=== PATIENT | female | born 1945 | race Caucasian/White ===

== ENCOUNTER 2017-06-19 08:51 | Outpatient (CLI) | payer MEDICARE ==
--- NOTE | 2017-06-19 13:49 | CT ---
CT OF THE CHEST WITHOUT CONTRAST: HISTORY: Followup pulmonary nodules originally diagnosed in 1984. Fatigue for 3-4 months. TECHNIQUE: Multiple contiguous axial images were obtained in a CT of the chest without contrast. Coronal refor mats were performed. FINDINGS: There are peripheral areas of nodularity seen in the right lung. There is a peripheral area of nodu larity measuring approximately 5 mm in size on image 35 of 62 in the right middle lobe. There is a peripheral nodularity measuring 4-5 mm in size image 42 of 62 in the right lower lobe. There appear s to be scarring in the bilateral lung apices. There is a 7 mm spiculated region in the left apex o n image 10 of 62 which likely represents scarring but could represent a pulmonary nodule. A periphe ral area of nodularity measuring 4 mm in size is seen in the right lower lobe on image 35 of 62. No focal infiltrates are seen. No pneumothorax or pleural effusion are seen. The heart is normal in size. No hilar or mediastinal lymphadenopathy are seen. The visualized subdiaphragmatic structures and chest wall soft tissues are unremarkable. Degenerati ve changes are seen in the spine. IMPRESSION: Multifocal areas of nodularity in the lungs. These most likely represent areas of scarring rather t oliva true pulmonary nodules. A followup CT in 6 months is recommended to ensure stability. If prior films can be made available for comparison, then this exam could be compared to those to evaluate f or the stability of these areas of nodularity. POS: [facility]
== END 2017-06-19 08:52 | disposition home or self-care (01) ==
LOC: CT 08:51
PROVIDERS: ATTEND Internal Medicine Critical Care Medicine
DX: R91.1 Solitary pulmonary nodule (principal)
CPT/HCPCS: 71250

== ENCOUNTER 2017-09-15 12:06 | Outpatient (CLI) | payer MEDICARE | END 2017-09-15 12:07 | disposition home or self-care (01) | LOC: BICRAD 12:06 | PROVIDERS: ATTEND Internal Medicine | DX: R05 Cough (principal); R91.8 Other nonspecific abnormal finding of lung field | CPT/HCPCS: 71046; 87804 ==

== ENCOUNTER 2017-12-14 20:33 | Emergency (ER) | payer MEDICARE ==
[~2017-12-14 20:33] MED LIST: ISOVUE-370 76%-LOCM 1 ML ONE; Iopamidol 370 76% 50 ML VIAL FS ONE
[2017-12-14 21:05] LABS: Bilirubin Negative (Negative); Blood, Urine Trace (Negative); Clarity CLEAR (Clear); Glucose, Urine (Dipstick) Negative (Negative); Leukocyte Negative (Negative); Nitrite Negative (Negative); Protein, Urine (Dipstick) Negative (Neg-Trace); Specific Gravity, Urine 1.004 (1.002-1.036); Urobilinogen 0.2 mg/dL (0.2-1.0)
[2017-12-14 21:07] LABS: Bacteria/HPF None Seen HPF (None Seen); Hyaline Casts/LPF 0-3 HYALINE CAST LPF (0-3 Hyaline); Squamous Epithelial None Seen HPF (0-3); WBC/HPF None Seen HPF (0-3)
[2017-12-14 21:26] LABS: #Lymphocytes 1.2 thou/uL (1.20-3.40); #Monocytes 0.9 thou/uL (0.11-0.59); #Neutrophils 6.9 thou/uL (1.40-6.50); %Basophils 0.3 % (0.0-1.0); %Eosinophils 0.5 % (0.0-10.0); %Lymphocytes 13.7 % (21.0-51.0); %Monocytes 9.4 % (0.0-10.0); %Neutrophils 76.1 % (42.0-75.0); Mean Corpuscular HGB CONC 33.1 g/dL (32.0-36.0); Mean Corpuscular Hemoglobin 29.2 pg (27.0-31.0); Mean Corpuscular Volume 88.2 fl (81.0-99.0); Mean Platelet Volume 7.9 fL (7.4-10.4); Platelet Count 214 thou/uL (130-400); RBC Distribution Width 12.7 % (11.5-14.5); Red Blood Cell (RBC) Count 4.09 mill/uL (4.20-5.40); White Blood Cell (WBC) Count 9.1 thou/uL (4.8-10.8)
[2017-12-14 22:31] LABS: Chloride 100 mmol/L (98-107); Potassium 4.3 mmol/L (3.5-5.1); Sodium 136 mmol/L (136-145)
[2017-12-14 22:32] LABS: Calcium 9.2 mg/dL (7.8-10.44)
[2017-12-14 22:33] LABS: Globulin 2.7 g/dL (2.4-3.5); Glucose 106 mg/dL (83-110); Protein, Total 6.7 g/dL (6.0-8.3)
[2017-12-14 22:34] LABS: Anion Gap 13 mmol/L (10-20); Bilirubin, Total 0.5 mg/dL (0.2-1.2); Carbon Dioxide 27 mmol/L (23-31)
[2017-12-14 22:35] LABS: Alkaline Phosphatase 74 U/L (40-150)
[2017-12-14 22:36] LABS: Calc. Creatinine Clearance 0 mL/min (70-130); Estimated GFR-MDRD 69
[2017-12-14 22:37] LABS: BUN (Urea Nitrogen) 11 mg/dL (9.8-20.1)
[2017-12-14 22:38] LABS: ALT (SGPT) 10 U/L (8-55); AST (SGOT) 15 U/L (5-34)
--- NOTE | 2017-12-14 23:51 | CT ---
CT ABDOMEN AND PELVIS WITH IV CONTRAST: 12/14/2017 HISTORY: Lower abdominal pain and fever. COMPARISON: 11/28/2014 FINDINGS: There is a stable, approximately 6 mm pulmonary nodule at the lateral aspect of the right middle lobe , with stable, smaller, less than 4 mm pulmonary nodules at the posterolateral right lower lobe. The re is linear scarring versus atelectasis at the left lung base. A small hiatal hernia is present. Vascular calcifications are again seen in the abdominal aorta and iliac arteries. There are stable, tiny, subcentimeter, [id number]-characterize hypodense lesions in each lobe of th e liver, likely tiny cysts. The spleen, pancreas, bilateral adrenal glands, kidneys, and urinary bladder demonstrate a normal CT appearance. The uterus is grossly normal in appearance for the patient's age. There is colonic diverticulosis present, predominantly involving the sigmoid colon. There is a small to moderate amount of retained fecal material seen within the colon. There is wall thickening invol ving the sigmoid colon. There are just minimal pericolonic inflammatory changes. While this could b e related to diverticulitis, a colonic mass is a possibility. This was not present on the prior exam . No free intraperitoneal gas is seen in the abdomen or pelvis, and there is no fluid collection identi fied. There is bilateral hip osteoarthritis with degenerative changes in the spine. IMPRESSION: 1. Colonic wall thickening involving the sigmoid colon with pericolonic inflammatory changes. Multi ple colonic diverticula are also seen in the sigmoid colon. These findings are likely attributable t o diverticulitis, but follow-up evaluation is recommended to ensure resolution of wall thickening and exclude a neoplastic process. 2. Stable, tiny nodules, right lower lobe. 3. Stable, tiny, low density lesions in the liver, which statistically probably represent cysts, giv en the stability over this period of time. 4. Constipation. 5. Small hiatal hernia. POS: [facility]
[2017-12-15] MEDS ORDERED: Ciprofloxacin 500 MG TAB ONE (00:01)
[2017-12-15] MEDS ORDERED: metroNIDAZOLE 250 MG TAB ONE (00:01)
== END 2017-12-15 00:03 | disposition home or self-care (01) ==
LOC: ERS 20:33
DX: K57.92 Diverticulitis of intestine, part unspecified, without perforation or abscess without bleeding; Z79.899 Other long term (current) drug therapy; E03.9 Hypothyroidism, unspecified; J45.909 Unspecified asthma, uncomplicated; K58.9 Irritable bowel syndrome, unspecified; Z79.82 Long term (current) use of aspirin
CPT/HCPCS: 36415; 74177; 80053; 81003; 81015; 83605; 85025; 85652; 86140; 87086

== ENCOUNTER 2018-08-05 12:59 | Outpatient (CLI) | payer MEDICARE | END 2018-08-05 13:00 | disposition home or self-care (01) | LOC: BICMAMMO 12:59 | PROVIDERS: ATTEND Obstetrics & Gynecology | DX: Z12.31 Encounter for screening mammogram for malignant neoplasm of breast (principal) | CPT/HCPCS: 77063; 77067 ==

== ENCOUNTER 2019-01-05 12:13 | Outpatient (CLI) | payer MEDICARE ==
--- NOTE | 2019-01-05 14:15 | CT ---
EXAM: Abdomen and pelvic CT scan with contrast: HISTORY: History of diverticulitis, pain COMPARISON: 12/14/2017 FINDINGS: Small stable pericardial effusion. Small stable right lung nodules. Liver: Stable small liver low-attenuation foci. Gallbladder:Unremarkable. Pancreas:Unremarkable Spleen:Unremarkable. Adrenal glands:Unremarkable. Kidneys:No renal calculus or acute obstruction.No solid or cystic mass. No evidence of bowel obstruction. Colonic diverticulosis without evidence for acute diverticulitis. T here is some very minimal residual colonic wall thickening in the sigmoid colon but markedly improved from prior exam. No CT evidence for acute appendicitis. The urinary bladder is unremarkable. No abscess, adenopathy, or abnormal fluid collection within the abdomen or pelvis. IMPRESSION: No significant acute process noted in the abdomen or pelvis. Colonic diverticulosis without acute diverticulitis. Small stable pericardial effusion. Small stable right lung nodules. Small stable liver low-attenuation foci.
[2019-01-05] MEDS ORDERED: Iopamidol 370 76% 100 ML VIAL ONE (14:26)
== END 2019-01-05 12:14 | disposition home or self-care (01) ==
LOC: BICCT 12:13
PROVIDERS: ATTEND Physician Assistant Medical
DX: K57.32 Diverticulitis of large intestine without perforation or abscess without bleeding (principal); R10.32 Left lower quadrant pain; K57.30 Diverticulosis of large intestine without perforation or abscess without bleeding; I31.3 Pericardial effusion (noninflammatory); R91.8 Other nonspecific abnormal finding of lung field
CPT/HCPCS: 74177; 82565; Q9967

== ENCOUNTER 2019-01-25 09:29 | Outpatient (CLI) | payer MEDICARE ==
--- NOTE | 2019-01-25 10:47 | RAD ---
CHEST 2 VIEWS: HISTORY: Dyspnea. COMPARISON: 09/15/2017. FINDINGS: Heart size is within normal limits. 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 No confluent pneumonia, overt edema, or pleural effusion. IMPRESSION: Stable chronic changes particularly in the upper lung zones with some volume loss. No new process. POS: [facility]
== END 2019-01-25 09:30 | disposition home or self-care (01) ==
LOC: RAD 09:29
PROVIDERS: ATTEND Internal Medicine Critical Care Medicine
DX: R06.00 Dyspnea, unspecified (principal); J98.4 Other disorders of lung
CPT/HCPCS: 71046

== ENCOUNTER 2019-08-17 12:57 | Outpatient (CLI) | payer MEDICARE ==
--- NOTE | 2019-08-17 13:30 | MMO ---
Bilateral MAMMO Bilat Screen [facility]. CLINICAL HISTORY: Patient is 74 years old and is seen for screening. The patient has no family history of breast cancer. The patient has no personal history of cancer. The patient has a history of right Stereotatic Biopsy in 2002 - benign. VIEWS: The views performed were: bilateral craniocaudal with tomosynthesis and bilateral mediolateral oblique with tomosynthesis. FILMS COMPARED: The present examination has been compared to prior imaging studies performed at [facility] on 06/21/2015, 06/27/2016, 07/07/2017 and 08/05/2018. This study has been interpreted with the assistance of computer-aided detection. MAMMOGRAM FINDINGS: There are scattered fibroglandular densities. There are no suspicious masses, suspicious calcifications, or new areas of architectural distortion. IMPRESSION: THERE IS NO MAMMOGRAPHIC EVIDENCE OF MALIGNANCY. A ROUTINE FOLLOW-UP MAMMOGRAM IN 1 YEAR IS RECOMMENDED. THE RESULTS OF THIS EXAM WERE SENT TO THE PATIENT. ACR BI-RADS Category 1 - Negative MAMMOGRAPHY NOTE: 1. A negative mammogram report should not delay a biopsy if a dominant of clinically suspicious mass is present. 2. Approximately 10% to 15% of breast cancers are not detected by mammography. 3. Adenosis and dense breasts may obscure an underlying neoplasm. Reported by: PELON GOLDBERG MD Electonically Signed: [id number]
== END 2019-08-17 12:58 | disposition home or self-care (01) ==
LOC: BICMAMMO 12:57
PROVIDERS: ATTEND Obstetrics & Gynecology
DX: Z12.31 Encounter for screening mammogram for malignant neoplasm of breast (principal)
CPT/HCPCS: 77063; 77067

== ENCOUNTER 2019-08-19 15:16 | Emergency (ER) | payer MEDICARE | END 2019-08-19 16:27 | disposition left against medical advice (07) | LOC: ERS 15:16 | DX: Z53.21 Procedure and treatment not carried out due to patient leaving prior to being seen by health care provider (principal) ==

== ENCOUNTER 2019-11-12 13:14 | Outpatient (CLI) | payer MEDICARE ==
--- NOTE | 2019-11-12 15:38 | ULT ---
SOFT TISSUE ULTRASOUND RIGHT NECK: 11/12/19 INDICATIONS: Directed ultrasound of the right neck is performed to assess a palpable area. Small nonspecific lymph nodes are seen in the right neck. One lymph node measures approximately 1.0 x 0.7 x 0.3 mm. Another lymph node measures 0.7 x 0.4 x 0.5 mm. IMPRESSION: Small nonspecific lymph nodes in the right neck at the area of palpable concern. If there is concern of cervical adenopathy, recommend CT neck with contrast to assess the deep lymph node levels. POS: [facility]
== END 2019-11-12 13:15 | disposition home or self-care (01) ==
LOC: BICULT 13:14
PROVIDERS: ATTEND Internal Medicine
DX: R59.0 Localized enlarged lymph nodes (principal)
CPT/HCPCS: 76536

== ENCOUNTER 2020-04-28 08:14 | Outpatient (CLI) | payer MEDICARE ==
--- NOTE | 2020-04-28 09:25 | CT ---
EXAM: CT NECK SOFT TISSUE POST CONTRAST: HISTORY: Lymphadenopathy. Right-sided mass. COMPARISON: None. CORRELATION None. FINDINGS: Brain parenchyma: No pathologic enhancement of the visualized brain parenchyma. Sinuses: Adequate aeration of the visualized paranasal sinuses and mastoid air cells. Orbits: Appropriate location of the ocular lenses. Symmetric attenuation the optic nerves and ocular rectus muscles. Retrobulbar fat is preserved. Nasopharynx:Adequate aeration. No mucosal abnormality. Oral cavity:Aerodigestive tract is patent. No mucosal abnormality. Limited evaluation of the oral cav ity due to dental amalgam artifact. Midline fatty raphae of the tongue is preserved. Hypopharynx: Mild effacement of the right vallecula likely representing secretions or debris. As a co nservative measure, direct visualization is recommended.. Larynx: No mucosal abnormality. Paraspinal muscles: Symmetric attenuation of the paraspinal muscles and symmetric attenuation of the sternocleidomastoid muscles.. Parotid and salivary glands: Symmetric attenuation of the parotid and submandibular glands Cervical carotid arteries: Scattered atherosclerosis. No evidence of high-grade stenosis. Technique l imits evaluation. Thyroid gland: Diminutive thyroid gland.. Spine: Vertebral body height is maintained. No fracture. No significant central canal stenosis or sig nificant neural foraminal narrowing. Limited evaluation due to technique. Multilevel facet arthropathy is identified. Lymph nodes: No evidence of lymphadenopathy by size criteria Lung apices and upper mediastinum: There are linear densities throughout the lung apices which may re present scar or fibrosis. The degree of lung parenchymal opacification is similar to a CT from 06/19/2017. There is a spiculated solid nodule in the left upper lobe which appears to be similar to the previous examination. IMPRESSION: 1. No evidence of lymphadenopathy by size criteria. 2. Chronic lung parenchymal changes. 3. Mild effacement of the right vallecula likely representing secretion. As a conservative measure, d irect visualization is recommended. Transcribed Date/Time: 04/28/2020 9:36 AM
[2020-04-28] MEDS ORDERED: Iopamidol-370 76% 500 ML 1 ML ONE (14:11)
== END 2020-04-28 08:15 | disposition home or self-care (01) ==
LOC: BICCT 08:14
PROVIDERS: ATTEND Internal Medicine
DX: R59.9 Enlarged lymph nodes, unspecified (principal); J98.4 Other disorders of lung
CPT/HCPCS: 70491; Q9967

== ENCOUNTER 2020-08-29 15:46 | Outpatient (CLI) | payer MEDICARE ==
--- NOTE | 2020-08-29 16:28 | MMO ---
Bilateral MAMMO Bilat Screen [facility]. CLINICAL HISTORY: Patient is 75 years old and is seen for screening. The patient has no family history of breast cancer. The patient has no personal history of cancer. The patient has a history of right Stereotatic Biopsy in 2002 - benign. VIEWS: The views performed were: bilateral craniocaudal with tomosynthesis and bilateral mediolateral oblique with tomosynthesis. FILMS COMPARED: The present examination has been compared to prior imaging studies performed at [facility] on 06/27/2016, 07/07/2017, 08/05/2018 and 08/17/2019. This study has been interpreted with the assistance of computer-aided detection. MAMMOGRAM FINDINGS: There are scattered fibroglandular densities. There are stable calcifications seen in both breasts. There are no suspicious masses, suspicious calcifications, or new areas of architectural distortion. IMPRESSION: THERE IS NO MAMMOGRAPHIC EVIDENCE OF MALIGNANCY. A ROUTINE FOLLOW-UP MAMMOGRAM IN 1 YEAR IS RECOMMENDED. THE RESULTS OF THIS EXAM WERE SENT TO THE PATIENT. ACR BI-RADS Category 2 - Benign finding MAMMOGRAPHY NOTE: 1. A negative mammogram report should not delay a biopsy if a dominant of clinically suspicious mass is present. 2. Approximately 10% to 15% of breast cancers are not detected by mammography. 3. Adenosis and dense breasts may obscure an underlying neoplasm. Reported by: SOCORRO SHERMAN MD Electonically Signed: [id number]
== END 2020-08-29 15:47 | disposition home or self-care (01) ==
LOC: BICMAMMO 15:46
PROVIDERS: ATTEND Obstetrics & Gynecology
DX: Z12.31 Encounter for screening mammogram for malignant neoplasm of breast (principal); Z91.89 Other specified personal risk factors, not elsewhere classified
CPT/HCPCS: 77063; 77067

== ENCOUNTER 2021-01-05 09:06 | Outpatient (CLI) | payer MEDICARE | END 2021-01-05 09:07 | disposition home or self-care (01) | LOC: BICCT 09:06 | PROVIDERS: ATTEND Urology | DX: R31.29 Other microscopic hematuria (principal); R35.0 Frequency of micturition | CPT/HCPCS: 74178; 82565 ==

== ENCOUNTER 2021-09-24 12:55 | Outpatient (CLI) | payer MEDICARE | END 2021-09-24 12:56 | disposition home or self-care (01) | LOC: BICMAMMO 12:55 | PROVIDERS: ATTEND Obstetrics & Gynecology | DX: Z12.31 Encounter for screening mammogram for malignant neoplasm of breast (principal) | CPT/HCPCS: 77063; 77067 ==

== ENCOUNTER 2022-04-16 09:44 | Outpatient (CLI) | payer MEDICARE, OTHER | END 2022-04-16 09:45 | disposition home or self-care (01) | LOC: RAD 09:44 | PROVIDERS: ATTEND Internal Medicine Critical Care Medicine | DX: R06.00 Dyspnea, unspecified (principal) | CPT/HCPCS: 71046 ==

== ENCOUNTER 2022-11-07 12:45 | Outpatient (CLI) | payer MEDICARE | END 2022-11-07 12:46 | disposition home or self-care (01) | LOC: BICMAMMO 12:45 | PROVIDERS: ATTEND Obstetrics & Gynecology | DX: Z12.31 Encounter for screening mammogram for malignant neoplasm of breast (principal); Z91.89 Other specified personal risk factors, not elsewhere classified | CPT/HCPCS: 77063; 77067 ==

== ENCOUNTER 2023-09-26 10:13 | Outpatient (CLI) | payer MEDICARE ==
[2023-09-26 11:35] LABS: #Basophils 0.1 10x3/uL (0.0-0.2); #Eosinphils 0.1 10x3/uL (0.0-0.5); #Monocytes 0.5 10x3/uL (0.0-1.1); #Neutrophils 4.2 10x3/uL (1.5-8.4); %Lymphocytes 22.6 % (18.0-47.0); %Monocytes 8.3 % (0.0-10.0); %Neutrophils 66.8 % (40.0-75.0); Hematocrit 35.9 % (34.9-44.5); Hemoglobin 11.6 g/dL (12.0-15.5); Mean Corpuscular HGB CONC 32.3 g/dL (32.0-36.0); Mean Corpuscular Hemoglobin 28.8 pg (27.0-33.0); Mean Corpuscular Volume 89.1 fl (81.6-98.3); Mean Platelet Volume 9.6 fl (7.4-10.4); Platelet Count 253 10x3/uL (150-450); RBC Distribution Width 13.1 % (11.5-14.5); Red Blood Cell (RBC) Count 4.03 10x6/uL (3.90-5.03); White Blood Cell (WBC) Count 6.2 10x3/uL (3.5-10.5)
[2023-09-26 11:48] LABS: Prothrombin Time 10.3 sec (9.5-12.1)
[2023-09-26 11:49] LABS: Anion Gap 12 mmol/L (10-20); BUN (Urea Nitrogen) 14 mg/dL (9.8-20.1); Calc. Creatinine Clearance 0 mL/min (70-130); Calcium 9.4 mg/dL (7.8-10.44); Carbon Dioxide 27 mmol/L (23-31); Chloride 104 mmol/L (98-107); Estimated GFR 74; Glucose 89 mg/dL (83-110); Potassium 4.4 mmol/L (3.5-5.1); Sodium 139 mmol/L (136-145)
== END 2023-09-26 10:14 | disposition home or self-care (01) ==
LOC: LABBT 10:13
PROVIDERS: ATTEND Orthopaedic Surgery
DX: Z01.812 Encounter for preprocedural laboratory examination (principal); M16.11 Unilateral primary osteoarthritis, right hip
CPT/HCPCS: 80048; 85025; 85610; 87081

== ENCOUNTER 2023-09-30 06:49 | Observation (INO) | payer MEDICARE ==
[2023-09-30] MEDS ORDERED: Propofol 500 MG/50 ML VIAL ONE (07:18)
[2023-09-30] MEDS ORDERED: Vancomycin 1 GM/200 ML (FROZEN) BAG ONE (07:19)
[2023-09-30] MEDS ORDERED: Tranexamic Acid 1,000 MG/10 ML VIAL ONE (07:19)
[2023-09-30] MEDS ORDERED: Sodium Chloride 0.9% 100 ML ONE ×2 (07:19→08:04)
[2023-09-30] MEDS ORDERED: fentaNYL 50 mcg/mL 1 mL Vial ONE ×2 (07:22→13:57)
[2023-09-30] MEDS ORDERED: Midazolam HCl 2 mg/2 ml Vial ONE (07:23)
[2023-09-30] MEDS ORDERED: Bupivacaine PF 0.5% 30 ML VIAL ONE ×2 (07:23→08:20)
[2023-09-30] MEDS ORDERED: fentaNYL 50 mcg/mL 1 mL Vial SLOW IVP PRN (07:34)
[2023-09-30] MEDS ORDERED: Acetaminophen 325 MG TAB PO PRN (07:34)
[2023-09-30] MEDS ORDERED: HYDROcodone/Acetaminophen 10/325 mg Tablet PO PRN ×2 (07:34)
[2023-09-30] MEDS ORDERED: Ondansetron PF 4 MG/2 ML Vial IVP PRN (07:34)
[2023-09-30] MEDS ORDERED: Promethazine HCl 25 MG/ML VIAL IM PRN ×2 (07:34→10:09)
[2023-09-30] MEDS ORDERED: Zolpidem Tartrate 5 MG TAB PO PRN (07:34)
[2023-09-30] MEDS ORDERED: diphenhydrAMINE 25 MG CAP PO PRN (07:34)
[2023-09-30] MEDS ORDERED: Dicyclomine 10 MG CAP PO PRN (07:36)
[2023-09-30] MEDS ORDERED: Methocarbamol 500 MG TAB PO PRN (07:47)
[2023-09-30] MEDS ORDERED: Metamucil PACK PO PRN (07:48)
[2023-09-30] MEDS ORDERED: CEFAZOLIN 2 GM VIAL ONE (08:04)
[2023-09-30] MEDS ORDERED: Ropivacaine 0.5% HCl/PF (150 MG/30 ML VIAL) ONE (08:05)
[2023-09-30] MEDS ORDERED: Ondansetron PF 4 MG/2 ML Vial ONE (08:10)
[2023-09-30] MEDS ORDERED: Lidocaine 1% PF 5 ML VIAL ONE (08:50)
[2023-09-30] MEDS ORDERED: Estradiol 0.01% Vaginal Cream 42.5 gm Tube VAG SCH (09:00)
[2023-09-30] MEDS ORDERED: PHENYLEPHRINE-NS 100 MCG/ML 10 ML SYRINGE ONE (09:23)
[2023-09-30] MEDS ORDERED: Ondansetron HCl/PF 4 MG/2 ML Vial IVP PRN (10:09)
[2023-09-30] MEDS ORDERED: Morphine Sulfate 2 MG/ML SYRINGE SLOW IVP PRN (10:09)
[2023-09-30] MEDS: Cholecalciferol 1,000 UNITS (25 MCG) TAB PO SCH (15:53)
[2023-09-30] MEDS: Sodium Chloride 0.9% 1,000 ML IV SCH ×2 (15:53→16:59)
[2023-09-30] MEDS: Aspirin 81 mg Enteric Coated Tablet PO SCH ×2 (15:53→19:50)
[2023-09-30] MEDS: Ferrous Gluconate 324 MG TAB PO SCH ×2 (15:53→19:48)
[2023-09-30] MEDS: Multivitamin W/ Minerals 1 TAB PO SCH ×2 (15:53→15:54)
[2023-09-30] MEDS: Senokot S 8.6-50 MG TAB PO SCH (15:54)
[2023-09-30] MEDS: Ketorolac Tromethamine 30 MG (1 mL) VIAL IVP SCH (15:54)
[2023-09-30] MEDS: Polyethylene Glycol 3350 17 GM Packet PO SCH (15:54)
[2023-09-30] MEDS: CO Q-10 CAPSULE 50 MG PO SCH (15:54)
[2023-09-30 16:41] VITALS: BMI 26.2
[2023-09-30] MEDS: CEFAZOLIN 2 GM in Sodium Chloride 0.9% 100 ML IVPB SCH (17:00)
[2023-09-30] MEDS: Montelukast Sodium 10 mg Tablet PO SCH (19:48)
[2023-09-30] MEDS: Rosuvastatin 20 MG TAB PO SCH (19:49)
[2023-09-30] MEDS: Amlodipine 5 MG TAB PO SCH (19:49)
[2023-09-30] MEDS: Loratadine 10 MG TAB PO SCH (19:49)
[2023-10-01] MEDS: Senokot S 8.6-50 MG TAB PO SCH ×3 (00:44→20:48)
[2023-10-01] MEDS: Ketorolac Tromethamine 30 MG (1 mL) VIAL IVP SCH ×4 (00:45→20:57)
[2023-10-01] MEDS: CEFAZOLIN 2 GM in Sodium Chloride 0.9% 100 ML IVPB SCH (00:46)
[2023-10-01 05:46] LABS: Hematocrit 30.4 % (36.0-47.0); Hemoglobin 9.9 g/dL (12.0-16.0); Mean Corpuscular HGB CONC 32.6 g/dL (32.0-36.0); Mean Corpuscular Hemoglobin 28.9 pg (27.0-31.0); Mean Corpuscular Volume 88.9 fl (78.0-98.0); Mean Platelet Volume 9.8 fL (7.4-10.4); Platelet Count 190 10x3/uL (130-400); RBC Distribution Width 13.2 % (11.5-14.5); Red Blood Cell (RBC) Count 3.42 mill/uL (4.20-5.40); White Blood Cell (WBC) Count 7.7 10x3/uL (4.8-10.8)
[2023-10-01] MEDS: Sodium Chloride 0.9% 1,000 ML IV SCH ×3 (08:56→20:44)
[2023-10-01] MEDS: Levothyroxine Sodium 88 MCG TAB PO SCH (08:57)
[2023-10-01] MEDS: Polyethylene Glycol 3350 17 GM Packet PO SCH (09:20)
[2023-10-01] MEDS: Aspirin 81 mg Enteric Coated Tablet PO SCH ×2 (09:21→20:48)
[2023-10-01] MEDS: Ferrous Gluconate 324 MG TAB PO SCH ×2 (09:21→20:48)
[2023-10-01] MEDS: Multivitamin W/ Minerals 1 TAB PO SCH ×2 (09:21→09:24)
[2023-10-01] MEDS: CO Q-10 CAPSULE 50 MG PO SCH (09:24)
[2023-10-01] MEDS: Cholecalciferol 1,000 UNITS (25 MCG) TAB PO SCH (09:24)
[2023-10-01] MEDS: Amlodipine 5 MG TAB PO SCH (20:48)
[2023-10-01] MEDS: Montelukast Sodium 10 mg Tablet PO SCH (20:48)
[2023-10-01] MEDS: Rosuvastatin 20 MG TAB PO SCH (20:49)
[2023-10-01] MEDS: Loratadine 10 MG TAB PO SCH (20:49)
[2023-10-02] MEDS: Ketorolac Tromethamine 30 MG (1 mL) VIAL IVP SCH ×2 (04:11→14:56)
[2023-10-02] MEDS: Levothyroxine Sodium 88 MCG TAB PO SCH (04:12)
[2023-10-02] MEDS: Multivitamin W/ Minerals 1 TAB PO SCH ×2 (08:56→08:57)
[2023-10-02] MEDS: Cholecalciferol 1,000 UNITS (25 MCG) TAB PO SCH (08:56)
[2023-10-02] MEDS: Polyethylene Glycol 3350 17 GM Packet PO SCH (08:56)
[2023-10-02] MEDS: Senokot S 8.6-50 MG TAB PO SCH (08:57)
[2023-10-02] MEDS: CO Q-10 CAPSULE 50 MG PO SCH (08:57)
[2023-10-02] MEDS: Aspirin 81 mg Enteric Coated Tablet PO SCH (08:57)
[2023-10-02] MEDS: Ferrous Gluconate 324 MG TAB PO SCH (08:57)
[2023-10-02 12:43] VITALS: BP 147/75; TEMP 98.3
[2023-10-05] MEDS ORDERED: Levothyroxine Sodium 88 MCG TAB PO SCH (06:00)
== END 2023-10-02 15:30 | disposition home or self-care (01) ==
LOC: SDC 06:49 → SURG A 07:00
PROVIDERS: ADMIT Orthopaedic Surgery; ATTEND Orthopaedic Surgery
PROC: 0SR90JZ Replacement of Right Hip Joint with Synthetic Substitute, Open Approach (ICD-10-PCS; principal; 2023-09-30)
DX: M16.11 Unilateral primary osteoarthritis, right hip (principal); E03.9 Hypothyroidism, unspecified; Z90.89 Acquired absence of other organs; Z90.49 Acquired absence of other specified parts of digestive tract; Z79.890 Hormone replacement therapy; Z88.8 Allergy status to other drugs, medicaments and biological substances
CPT/HCPCS: 27130; 73502; 85027; 96374; 96375; 96376 ×2; 97110 ×2; 97116 ×2; 97530 ×3; 97535; C1776; G0378 ×3; J3010; J3370; 36415; J0665; J1885; J2250; J2405; J2704; J2795; J3490; J7050

== ENCOUNTER 2025-05-25 13:31 | Outpatient (CLI) | payer MEDICARE | END 2025-05-25 13:32 | disposition home or self-care (01) | LOC: RAD 13:31 | PROVIDERS: ATTEND Internal Medicine Critical Care Medicine | DX: R06.00 Dyspnea, unspecified (principal) | CPT/HCPCS: 71046 ==